=== PATIENT | female | born 1960 | race Caucasian/White ===

== ENCOUNTER 2018-02-11 14:54 | Inpatient (IN) | payer OTHER ==
[2018-02-11 15:15] VITALS: BMI 25.0
[2018-02-11] MEDS ORDERED: Sodium Chloride 0.9% 1,000 ML IV STA (15:23)
--- NOTE | 2018-02-11 15:40 | ED PDOC ---
Arrival/HPI - General Historian: Patient, Partner (Boyfriend) - History of Present Illness Narrative History of Present Illness (Text): 02/11/18 15:29 58 y o female with no remarkable past medical hx presents to the ED c/o b/l lower abd pain, n/v since 4 am today. States she last ate BLT sandwich in the evening yesterday, and that her symptoms awoke her from sleep this am. States she might have food poisoning. Admits to associated subjective fevers/chills, reports several episodes of vomiting and dry heaves (last episode at 12 pm today). Unable to tolerate PO liquids or solid foods due to nausea/vomiting. Admits to associated lighheadedness. Also had several episodes of non-bloody watery diarrhea. Denies hx sick contacts, recent illness, or cold-like symptoms prior; states she was feeling well prior to this episode. Denies headache, chest pain, palpitations, sob, urinary complaints, or other symptoms. PMHx: denies PSurgHx: denies Allergies: PCN (rash) Home meds: none Fam hx: denies Soc hx: denies smoking, EtOH, or illicit drug use PMD: none Time/Duration: 24 hours Symptom Onset: Sudden Symptom Course: Worsening Quality: Unable to Describe Activities at Onset: Rest Context: Home <Donavon Rawls - Last Filed: 02/11/18 19:46> <Vargas Matthews - Last Filed: 02/12/18 23:16> - General Chief Complaint: Abdominal Pain Past Medical History - Provider Review Nursing Documentation Reviewed: Yes - Travel History Have you recently traveled outside [place] w/in the past 3 mons?: No - Past History Past History: No Previous - Infectious Disease Hx of Infectious Diseases: None <Donavon Rawls - Last Filed: 02/11/18 19:46> Family/Social History - Physician Review Nursing Documentation Reviewed: Yes Family/Social History: No Known Family HX Smoking Status: Never Smoked Hx Alcohol Use: No <Donavon Rawls - Last Filed: 02/11/18 19:46> Allergies/Home Meds <Donavon Rawls - Last Filed: 02/11/18 19:46> <Vargas Matthews - Last Filed: 02/12/18 23:16> Allergies/Adverse Reactions: Allergies Penicillins Allergy (Verified 02/11/18 22:21) RASH Review of Systems - Physician Review All systems were reviewed & negative as marked: Yes - Review of Systems Constitutional: Fatigue, Fevers. absent: Weight Change, Night Sweats Eyes: absent: Vision Changes Respiratory: absent: SOB, Cough, Sputum, Wheezing Cardiovascular: absent: Chest Pain, Palpitations, PATEL Gastrointestinal: Abdominal Pain, Stool Changes, Diarrhea, Nausea, Vomiting, Ap petite Changes, Anorexia. absent: Constipation Genitourinary Female: absent: Dysuria, Frequency, Hematuria, Urine Output Changes, Vaginal Bleeding Musculoskeletal: Back Pain, Myalgias. absent: Arthralgias Skin: absent: Rash, Pruritis Neurological: Dizziness. absent: Headache Endocrine: absent: Diaphoresis <Donavon Rawls - Last Filed: 02/11/18 19:46> Physical Exam Vital Signs Reviewed: Yes Vital Signs Temp Pulse Resp BP Pulse Ox 02/11/18 15:14 99.6 F 81 18 141/84 100 Temperature: Afebrile Blood Pressure: Normal Pulse: Regular Respiratory Rate: Normal Appearance: Positive for: Non-Toxic, Ill-Appearing, Uncomfortable Pain Distress: Moderate Mental Status: Positive for: Alert and Oriented X 3 - Systems Exam Head: Present: Atraumatic, Normocephalic Pupils: Present: PERRL Extroacular Muscles: Present: EOMI Conjunctiva: Present: Normal Mouth: Present: Moist Mucous Membranes Neck: Present: Normal Range of Motion. No: JVD, Lymphadenopathy Respiratory/Chest: Present: Clear to Auscultation, Good Air Exchange. No: Respiratory Distress, Accessory Muscle Use, Wheezes, Rales, Rhonchi Cardiovascular: Present: Regular Rate and Rhythm, Normal S1, S2. No: Murmurs, Rub, Gallop Abdomen: Present: Tenderness (Epigastric tenderness and RLQ and LLQ tenderness to palpation, no suprapubic tenderness), Distention, Normal Bowel Sounds, Guarding. No: Rebound, Mass/Organomegaly Back: Present: Normal Inspection, CVA Tenderness (On R side) Upper Extremity: Present: Normal Inspection, Normal ROM, NORMAL PULSES, Neurovascularly Intact, Capillary Refill < 2s. No: Cyanosis, Edema, Temperature Abnormalties Lower Extremity: Present: Normal Inspection, NORMAL PULSES, Normal ROM, Ne urovascularly Intact, Capillary Refill < 2 s. No: Edema, Temperature Abnormalties Neurological: Present: GCS=15, CN II-XII Intact, Speech Normal Skin: Present: Warm, Dry, Normal Color. No: Rashes Psychiatric: Present: Alert, Oriented x 3, Normal Insight, Normal Concentration <Donavon Rawls - Last Filed: 02/11/18 19:46> Vital Signs Temp Pulse Resp BP Pulse Ox 02/11/18 20:06 99.5 F 99 H 18 125/71 100 02/11/18 18:00 100.7 F H 100 H 17 126/79 96 02/11/18 17:48 75 18 138/79 100 02/11/18 15:14 99.6 F 81 18 141/84 100 - Systems Exam Abdomen: Present: Tenderness <Vargas Matthews - Last Filed: 02/12/18 23:16> Medical Decision Making ED Course and Treatment: 02/11/18 15:47 58 y o female no PMhx presents with lower abd pain, n/v since 4 am today. Plan: -Labs -EKG -Zofran, Toradol -IVF -CT abd/pelvis Will continue to monitor. 02/11/18 19:28 Spoke about case with medical economics consultant, who accepts admission under service of Dr. Justin. - RAD Interpretation Radiology Orders: 02/11/18 15:25 ABD & PELVIS W/O PO OR IV CONT [CT] Stat - Medication Orders Current Medication Orders: Sodium Chloride (Sodium Chloride 0.9%) 1,000 mls @ 999 mls/hr IV .Q1H1M STA Stop: 02/11/18 16:23 Discontinued Medications Ketorolac Tromethamine (Toradol) 30 mg IVP STAT STA Stop: 02/11/18 15:24 Ondansetron HCl (Zofran Inj) 4 mg IVP STAT STA Stop: 02/11/18 15:24 <Donavon Rawls - Last Filed: 02/11/18 19:46> - Lab Interpretations Microbiology Results: Microbiology Results 02/11/18 17:30 Blood Gram Stain - Final 02/11/18 17:52 Blood Gram Stain - Final Lab Results: 02/11/18 16:30 02/11/18 16:30 Lab Results 02/11/18 17:30: Urine Color Yellow, Urine Appearance Slight-cloudy, Urine pH 7.0, Ur Specific [place] 1.020, Urine Protein Trace H, Urine Glucose (UA) Negative, Urine Ketones Negative, Urine Blood Trace-lysed H, Urine Nitrate Positive H, Urine Bilirubin Negative, Urine Urobilinogen 0.2, Ur Leukocyte Esterase Trace H, Urine RBC Negative, Urine WBC 5 - 10, Ur Epithelial Cells 1 - 3, Urine Bacteria Large 02/11/18 16:30: Sodium 136, Potassium 4.2, Chloride 100, Carbon Dioxide 28, Anion Gap 13, BUN 20, Creatinine 1.0, Est GFR ( Amer) > 60, Est GFR (Non- Af Amer) 57, Random Glucose 156 H, Calcium 9.6, Phosphorus 3.3, Magnesium 1.5 L, Total Bilirubin 1.6 H, AST 34, ALT 31, Alkaline Phosphatase 92, Total Protein 8.6 H, Albumin 4.4, Globulin 4.2, Albumin/Globulin Ratio 1.1, Lipase 41 02/11/18 16:30: WBC 21.0 H, RBC 4.70, Hgb 14.1, Hct 41.9, MCV 89.1, MCH 30.0, MCHC 33.7, RDW 14.3, Plt Count 232, MPV 9.7, Gran % 92.3 H, Lymph % (Auto) 3.6 L , [place] % (Auto) 4.1, Eos % (Auto) 0.0 L, Baso % (Auto) 0.0, Gran # 19.36 H, Lymph # (Auto) 0.8 L, [place] # (Auto) 0.9 H, Eos # (Auto) 0.0, Baso # (Auto) 0.01, Neutrophils % (Manual) 85 H, Band Neutrophils % 3 H, Lymphocytes % (Manual) 8 L , Monocytes % (Manual) 3, Metamyelocytes % 1, Platelet Evaluation Normal - RAD Interpretation Radiology Orders: 02/11/18 15:25 ABD & PELVIS W/O PO OR IV CONT [CT] Stat - Medication Orders Current Medication Orders: Enoxaparin Sodium (Lovenox) 40 mg SC DAILY [facility]; Protocol Last Admin: 02/12/18 09:34 Dose: 40 mg Subcutaneous Administrations Document 02/12/18 09:34 BIR (Rec: 02/12/18 09:34 [facility] [id number]) Charges for Administration # of Subcutaneous Administrations 1 Famotidine (Pepcid) 20 mg IVP DAILY MANDY Last Admin: 02/12/18 09:34 Dose: 20 mg IVP Administration Document 02/12/18 09:34 BIR (Rec: 02/12/18 09:35 BIR [id number]) Charges for Administration # of IVP Administrations 1 Ciprofloxacin (Cipro 400mg/200ml Dsw) 400 mg in 200 mls @ 133.3 mls/hr IVPB Q12 MANDY; Protocol Stop: 02/12/18 11:31 Last Admin: 02/12/18 09:33 Dose: 133.3 mls/hr eMAR Start Stop Document 02/12/18 09:33 BIR (Rec: 02/12/18 09:34 BIR [id number]) Intravenous Solution Start Date 02/12/18 Start Time 09:33 End Date 02/12/18 End time 11:05 Total Infusion Time 92 Sodium Chloride (Sodium Chloride 0.9%) 1,000 mls @ 100 mls/hr IV .Q10H MANDY Last Admin: 02/11/18 23:25 Dose: 100 mls/hr eMAR Start Stop Document 02/11/18 23:25 MV (Rec: 02/11/18 23:25 MV [id number]) Intravenous Solution Start Date 02/11/18 Start Time 23:25 End Date 02/11/18 Ketorolac Tromethamine (Toradol) 15 mg IVP Q4 PRN PRN Reason: Pain, severe (8-10) Last Admin: 02/12/18 09:39 Dose: 15 mg MAR Pain Assessment Document 02/12/18 09:39 BIR (Rec: 02/12/18 09:41 BIR [id number]) Pain Reassessment Is this a pain reassessment? No Sleep Is patient sleeping during reassessment? No Presence of Pain Presence of Pain Yes IVP Administration Document 02/12/18 09:39 BIR (Rec: 02/12/18 09:41 BIR [id number]) Charges for Administration # of IVP Administrations 1 Ondansetron HCl (Zofran Inj) 4 mg IVP Q4H PRN PRN Reason: Nausea/Vomiting Discontinued Medications Acetaminophen (Tylenol 325mg Tab) 650 mg PO STAT STA Stop: 02/11/18 18:10 Last Admin: 02/11/18 18:14 Dose: 650 mg MAR Pain/Vitals Document 02/11/18 18:14 (Rec: 02/11/18 18:14 [id number] Pain Reassessment Is This A Pain ReAssessment? No Sleep Is patient sleeping during reassessment? No Presence of Pain Presence of Pain No Acetaminophen (Tylenol 325mg Tab) 650 mg PO ONCE ONE Stop: 02/12/18 06:10 Last Admin: 02/12/18 06:41 Dose: 650 mg MAR Pain/Vitals Document 02/12/18 06:41 FC (Rec: 02/12/18 06:41 FC [id number]) Presence of Pain Presence of Pain Yes Location Pain Location [employer] Sodium Chloride (Sodium Chloride 0.9%) 1,000 mls @ 999 mls/hr IV .Q1H1M STA Stop: 02/11/18 16:23 Last Admin: 02/11/18 16:40 Dose: 999 mls/hr eMAR Start Stop Document 02/11/18 16:40 RC (Rec: 02/11/18 16:42 [facility]-1) Intravenous Solution Start Date 02/11/18 Start Time 16:42 Ciprofloxacin (Cipro 400mg/200ml Dsw) 400 mg in 200 mls @ 133.3 mls/hr IVPB STAT STA; Protocol Stop: 02/11/18 18:21 Last Admin: 02/11/18 17:53 Dose: 133.3 mls/hr eMAR Start Stop Document 02/11/18 17:53 (Rec: 02/11/18 17:54 [facility]-1) Intravenous Solution Start Date 02/11/18 Start Time 17:54 Magnesium Sulfate/Dextrose (Magnesium Sulfate 1 Gm/100 Ml D5w) 1 gm in 100 mls @ 100 mls/hr IVPB ONCE ONE Stop: 02/11/18 23:39 Last Admin: 02/11/18 23:25 Dose: 100 mls/hr eMAR Start Stop Document 02/11/18 23:25 MV (Rec: 02/11/18 23:25 MV [id number]) Intravenous Solution Start Date 02/11/18 Start Time 23:25 End Date 02/12/18 End time 00:25 Total Infusion Time 60 Ketorolac Tromethamine (Toradol) 30 mg IVP STAT STA Stop: 02/11/18 15:24 Last Admin: 02/11/18 16:38 Dose: 30 mg MAR Pain Assessment Document 02/11/18 16:38 (Rec: 02/11/18 16:39 [place] [id number]) Pain Reassessment Is this a pain reassessment? No Presence of Pain Presence of Pain Yes Pain Scale Used Protocol: PSCALES Pain Scale Used Numeric Location Pain Location Body Site Abdomen Description Description Cramping IVP Administration Document 02/11/18 16:38 RC (Rec: 02/11/18 16:39 [place] [id number]) Charges for Administration # of IVP Administrations 1 Ondansetron HCl (Zofran Inj) 4 mg IVP STAT STA Stop: 02/11/18 15:24 Last Admin: 02/11/18 16:39 Dose: 4 mg IVP Administration Document 02/11/18 16:39 RC (Rec: 02/11/18 16:39 [place] [id number]) Charges for Administration # of IVP Administrations 1 <Vargas Matthews - Last Filed: 02/12/18 23:16> - PA / [employer] / Resident Statement / has examined the patient and agrees with the treatment plan. (58 yr old F p/w lower abd pain. on Exam CVAT and lower abd pain. CT w/ Pyelo + renal pelvis stone. Pt in NAD, IVF running, abx given. UTI 5-10 whites + CVAT. Given N/V elevated WBC and pyelo pt was admitted.) <Vargas Matthews - Last Filed: 02/12/18 23:16> Disposition/Present on Arrival - Present on Arrival Any Indicators Present on Arrival: No History of DVT/PE: No History of Uncontrolled Diabetes: No Urinary Catheter: No History of Decub. Ulcer: No - Disposition Have Diagnosis and Disposition been Completed?: Yes Disposition Time: 19:28 Patient Plan: Admission <Donavon Rawls - Last Filed: 02/11/18 19:46> <Vargas Matthews - Last Filed: 02/12/18 23:16> - Disposition Diagnosis: Pyelonephritis Disposition: HOSPITALIZED Patient Problems: Current Active Problems Problem Status Onset Pyelonephritis Acute Condition: GUARDED
--- NOTE | 2018-02-11 16:02 | CT ---
Date of service: 02/11/2018 PROCEDURE: CT Abdomen and Pelvis without intravenous contrast HISTORY: lower abd pain, nausea, vomiting COMPARISON: None. TECHNIQUE: Without contrast.. Contrast dose: Radiation dose: Total exam DLP = 612.44 mGy-cm. This CT exam was performed using one or more of the following dose reduction techniques: Automated exposure control, adjustment of the mA and/or kV according to patient size, and/or use of iterative reconstruction technique. FINDINGS: LOWER THORAX: Unremarkable. LIVER: Unremarkable. No gross lesion or ductal dilatation. GALLBLADDER AND BILE DUCTS: Unremarkable. PANCREAS: Unremarkable. No gross lesion or ductal dilatation. SPLEEN: Unremarkable. ADRENALS: Unremarkable. No mass. KIDNEYS AND URETERS: Multiple stones are seen in the right kidney including a large 12 x 22 mm stone in the renal pelvis. Small amount of air can be seen within the renal pelvis which could be due to instrumentation or a gas-forming infection. There is perinephric stranding extending below the lower pole of the right kidney. Findings are suspicious for pyelonephritis VASCULATURE: Unremarkable. No aortic aneurysm. No aortic atherosclerotic calcification or mural plaque present. BOWEL: Unremarkable. No obstruction. No gross mural thickening. APPENDIX: Unremarkable. Normal appendix. PERITONEUM: Unremarkable. No free fluid. No free air. LYMPH NODES: Unremarkable. No enlarged lymph nodes. BLADDER: Unremarkable. REPRODUCTIVE: Unremarkable. BONES: No acute fracture. OTHER FINDINGS: None. IMPRESSION: Multiple stones are seen in the right kidney including a large 12 x 22 mm stone in the renal pelvis. Small amount of air can be seen within the renal pelvis which could be due to instrumentation or a gas-forming infection. There is perinephric stranding extending below the lower pole of the right kidney. Findings are suspicious for pyelonephritis
[2018-02-11 16:51] LABS: ALB/GLOB RATIO 1.1 (1.1-1.8); ALBUMIN 4.4 g/dL (3.0-4.8); ALT/SGPT 31 U/L (7-56); AST/SGOT 34 U/L (14-36); BLOOD UREA NITROGEN 20 mg/dL (7-21); CALCIUM 9.6 mg/dL (8.4-10.5); GFR NON-AFRICAN AMERICAN 57; LIPASE 41 U/L (23-300)
[2018-02-11] MEDS ORDERED: Ciprofloxacin 400mg/200ml D5W 400 MG/200 ML BAG IVPB STA (16:51)
[2018-02-11 17:01] LABS: BASO # 0.01 K/mm3 (0.0-2.0); GRAN # 19.36 (1.4-6.5); GRAN % 92.3 % (50.0-68.0); HEMOGLOBIN 14.1 g/dL (12.0-16.0); LYMPH # 0.8 (1.2-3.4); LYMPH % 3.6 % (22.0-35.0); MEAN CELL VOLUME 89.1 fl (80.0-105.0); MEAN CORPUSCULAR HGB CONC 33.7 g/dl (31.0-37.0); MEAN PLATELET VOLUME 9.7 fl (7.0-11.0); MONO # 0.9 (0.1-0.6); MONO % 4.1 % (1.0-6.0); PLATELET COUNT 232 10^3/uL (120.0-450.0); RED CELL DISTRIBUTION WIDTH 14.3 % (11.5-14.5)
[2018-02-11 17:35] LABS: BAND 3 % (0-2); LYMPHOCYTE 8 % (22.0-35.0); METAMYELOCYTE 1 %; MONOCYTE 3 % (1.0-6.0); NEUTROPHIL 85 % (50.0-70.0)
[2018-02-11 17:36] LABS: PLATELET ESTIMATE NORMAL (NORMAL)
[2018-02-11 18:45] LABS: URINE BILIRUBIN NEGATIVE (NEGATIVE); URINE BLOOD TRACE-LYSED (NEGATIVE); URINE GLUCOSE (UA) NEGATIVE (NEGATIVE); URINE LEUKOCYTE ESTERASE TRACE Leu/uL (NEGATIVE); URINE PROTEIN TRACE mg/dL (<30 mg/dL); URINE UROBILINOGEN 0.2 E.U./dL (<1 E.U./dL)
[2018-02-11 18:46] LABS: URINE APPEARANCE SLIGHT-CLOUDY (CLEAR); URINE COLOR YELLOW (YELLOW)
[2018-02-11 18:51] LABS: URINE BACTERIA LARGE (NEG); URINE RBC NEGATIVE /hpf (0-2)
--- NOTE | 2018-02-11 21:46 | CP.PCM.HP ---
<Irma Yousif - Last Filed: 02/12/18 01:19> History of Present Illness - History of Present Illness History of Present Illness: Irma Yousif, PGY1 Hospital H&P This is a 58 year old female with no PMH presenting to the ED for one day history of abdominal pain. Patient states she woke up at approximately 4am and had sudden B/l lower abdominal pain rated 10/10, radiating to the right side of the back, sharp, constant, denies any alleviating or exacerbating factors and admits to associated symptoms of nausea, vomiting x5 non bloody and non bloody diarrhea x4. Last diarrhea episode was at 3pm. She states she has never had these symptoms before. Last meal was previous evening and had a BLT sandwich. She denies CP, SOB, headaches, fevers, cough, recent sickness, travel, lifestyle change, trauma, urinary complaints, numbness, tingling, swelling, constipation and hematemesis. 12 point ROS noted here, otherwise unremarkable. PMD: denies PMH: denies SH: denies drinking, smoking and drugs FH: denies Sx: denies surgeries All: PCN - gets rash Meds: denies Present on Admission - Present on Admission Any Indicators Present on Admission: No Past Patient History - Infectious Disease Hx of Infectious Diseases: None - Past Social History Smoking Status: Never Smoked - CARDIAC Hx Cardiac Disorders: No - PULMONARY Hx Respiratory Disorders: No - NEUROLOGICAL Hx Neurological Disorder: No - HEENT Hx HEENT Problems: No - RENAL Hx Chronic Kidney Disease: No - ENDOCRINE/METABOLIC Hx Endocrine Disorders: No - HEMATOLOGICAL/ONCOLOGICAL Hx Blood Disorders: No - INTEGUMENTARY Hx Dermatological Problems: No - MUSCULOSKELETAL/RHEUMATOLOGICAL Hx Musculoskeletal Disorders: No - GASTROINTESTINAL Hx Gastrointestinal Disorders: No - GENITOURINARY/GYNECOLOGICAL Hx Genitourinary Disorders: No - PSYCHIATRIC Hx Psychophysiologic Disorder: No Hx Substance Use: No - SURGICAL HISTORY Hx Surgeries: No Meds Allergies/Adverse Reactions: Allergies Allergy/AdvReac Type Severity Reaction Status Date / Time Penicillins Allergy RASH Verified 02/11/18 22:21 Physical Exam - Constitutional Appears: No Acute Distress - Head Exam Head Exam: ATRAUMATIC, NORMAL INSPECTION - Eye Exam Eye Exam: EOMI Pupil Exam: PERRL - ENT Exam ENT Exam: Mucous Membranes Dry - Respiratory Exam Respiratory Exam: Clear to Auscultation Bilateral, NORMAL BREATHING PATTERN. absent: Accessory Muscle Use, Wheezes, Respiratory Distress - Cardiovascular Exam Cardiovascular Exam: REGULAR RHYTHM, +S1, +S2 - GI/Abdominal Exam GI & Abdominal Exam: Normal Bowel Sounds, Soft. absent: Distended, Firm, Guarding, Tenderness - Extremities Exam Extremities exam: Positive for: normal inspection, pedal pulses present. Negative for: calf tenderness - Back Exam Back exam: CVA tenderness (R), NORMAL INSPECTION. absent: CVA tenderness (L) - Neurological Exam Neurological exam: Alert, Oriented x3 - Skin Skin Exam: Normal Color, Warm Results - Vital Signs Recent Vital Signs: Last Vital Signs Temp 99.5 F 02/11/18 20:06 Pulse 99 H 02/11/18 20:06 Resp 18 02/11/18 20:06 BP 125/71 02/11/18 20:06 Pulse Ox 100 02/11/18 20:06 - Labs Result Diagrams: 02/11/18 16:30 02/11/18 16:30 Labs: Laboratory Results - last 24 hr 02/11/18 02/11/18 02/11/18 16:30 16:30 17:30 WBC 21.0 H RBC 4.70 Hgb 14.1 Hct 41.9 MCV 89.1 MCH 30.0 MCHC 33.7 RDW 14.3 Plt Count 232 MPV 9.7 Gran % 92.3 H Lymph % (Auto) 3.6 L [place] % (Auto) 4.1 Eos % (Auto) 0.0 L Baso % (Auto) 0.0 Gran # 19.36 H Lymph # (Auto) 0.8 L [place] # (Auto) 0.9 H Eos # (Auto) 0.0 Baso # (Auto) 0.01 Neutrophils % (Manual) 85 H Band Neutrophils % 3 H Lymphocytes % (Manual) 8 L Monocytes % (Manual) 3 Metamyelocytes % 1 Platelet Evaluation Normal Sodium 136 Potassium 4.2 Chloride 100 Carbon Dioxide 28 Anion Gap 13 BUN 20 Creatinine 1.0 Est GFR ( Amer) > 60 Est GFR (Non-Af Amer) 57 Random Glucose 156 H Calcium 9.6 Phosphorus 3.3 Magnesium 1.5 L Total Bilirubin 1.6 H AST 34 ALT 31 Alkaline Phosphatase 92 Total Protein 8.6 H Albumin 4.4 Globulin 4.2 Albumin/Globulin Ratio 1.1 Lipase 41 Urine Color Yellow Urine Appearance Slight-cloudy Urine pH 7.0 Ur Specific [place] 1.020 Urine Protein Trace H Urine Glucose (UA) Negative Urine Ketones Negative Urine Blood Trace-lysed H Urine Nitrate Positive H Urine Bilirubin Negative Urine Urobilinogen 0.2 Ur Leukocyte Esterase Trace H Urine RBC Negative Urine WBC 5 - 10 Ur Epithelial Cells 1 - 3 Urine Bacteria Large Assessment & Plan - Assessment and Plan (Free Text) Assessment: This is a 58 year old female with no PMH presenting to the ED for one day history of abdominal pain. Plan: Pyelonephritis -CTAP showed multiple stones in the right kidney including large 12/22mm stone in the right pelvis. Small amount of air can be seen concerning for gas forming infection or instrumentation. Perinephric stranding to lower pole of right kidney appreciated. Findings suspicious for pyelonephritis. -U/A - positive for nitrate, trace lysed blood, leukocyte esterase -Urology on consult, Dr Baxter -Ciprofloxacin day 1 -zofran prn -toradol prn -NS 100 -NPO -urine/blood culture pending Hypomagnesia -repleted, f/u AM labs PPX with lovenox and pepcid Patient seen and case discussed with attending, Dr. Villanueva <Lluvia Villanueva - Last Filed: 02/12/18 19:08> Results - Vital Signs Recent Vital Signs: Last Vital Signs Temp 103 F H 02/12/18 18:00 Pulse 110 H 02/12/18 18:00 Resp 20 02/12/18 18:00 BP 123/58 L 02/12/18 18:00 Pulse Ox 98 02/12/18 18:00 - Labs Result Diagrams: 02/12/18 06:00 02/12/18 06:00 Labs: Laboratory Results - last 24 hr 02/12/18 02/12/18 02/12/18 06:00 06:00 08:48 WBC 20.9 H RBC 4.28 Hgb 12.6 Hct 37.8 MCV 88.3 MCH 29.4 MCHC 33.3 RDW 14.4 Plt Count 212 MPV 9.7 Gran % 89.1 H Lymph % (Auto) 6.2 L [place] % (Auto) 4.7 Eos % (Auto) 0.0 L Baso % (Auto) 0.0 Gran # 18.61 H Lymph # (Auto) 1.3 [place] # (Auto) 1.0 H Eos # (Auto) 0.0 Baso # (Auto) 0.01 PT INR APTT Sodium 137 Potassium 3.7 Chloride 104 Carbon Dioxide 26 Anion Gap 11 BUN 17 Creatinine 1.2 Est GFR ( Amer) 56 Est GFR (Non-Af Amer) 46 Random Glucose 113 H Calcium 8.7 Total Bilirubin 1.9 H AST 30 ALT 29 Alkaline Phosphatase 94 Total Protein 7.2 Albumin 3.7 Globulin 3.6 Albumin/Globulin Ratio 1.0 L Procalcitonin 2.86 H 02/12/18 11:40 WBC RBC Hgb Hct MCV MCH MCHC RDW Plt Count MPV Gran % Lymph % (Auto) [place] % (Auto) Eos % (Auto) Baso % (Auto) Gran # Lymph # (Auto) [place] # (Auto) Eos # (Auto) Baso # (Auto) PT 18.4 H INR 1.59 APTT 30.6 Sodium Potassium Chloride Carbon Dioxide Anion Gap BUN Creatinine Est GFR ( Amer) Est GFR (Non-Af Amer) Random Glucose Calcium Total Bilirubin AST ALT Alkaline Phosphatase Total Protein Albumin Globulin Albumin/Globulin Ratio Procalcitonin Attending/Attestation - Attestation I have personally seen and examined this patient.: Yes I have fully participated in the care of the patient.: Yes I have reviewed all pertinent clinical information: Yes
[2018-02-11] MEDS ORDERED: Magnesium Sulfate 1 gm in D5W 1 GM/100 ML BAG IVPB ONE (22:40)
[2018-02-11] MEDS: Sodium Chloride 0.9% 1,000 ML IV SCH (23:25)
[2018-02-12 06:50] LABS: ALBUMIN 3.7 g/dL (3.0-4.8); CALCIUM 8.7 mg/dL (8.4-10.5)
[2018-02-12 07:01] LABS: BASO # 0.01 K/mm3 (0.0-2.0); GRAN # 18.61 (1.4-6.5); GRAN % 89.1 % (50.0-68.0); HEMOGLOBIN 12.6 g/dL (12.0-16.0); LYMPH # 1.3 (1.2-3.4); LYMPH % 6.2 % (22.0-35.0); MEAN CELL VOLUME 88.3 fl (80.0-105.0); MEAN CORPUSCULAR HEMOGLOBIN 29.4 pg (25.0-35.0); MEAN CORPUSCULAR HGB CONC 33.3 g/dl (31.0-37.0); MEAN PLATELET VOLUME 9.7 fl (7.0-11.0); MONO % 4.7 % (1.0-6.0); RBC 4.28 10^6/uL (3.5-6.1); RED CELL DISTRIBUTION WIDTH 14.4 % (11.5-14.5); WHITE BLOOD COUNT 20.9 10^3/uL (4.5-11.0)
--- NOTE | 2018-02-12 08:57 | CP.PCM.CON ---
<Aly Trent - Last Filed: 02/12/18 15:12> History of Present Illness - History of Present Illness History of Present Illness: Infectious disease consult note for Dr. Ferreira/Dr. Maryann Trent PGY3 HPI: Patient is a 58yo female with no significant past medical history that presented with c/o abdominal pain. Patient stated that she was awoken in th emiddle of the night with sudden bilateral lower quadrant abdominal pain that radiated to the back and was constant, 10/10 in severity. She stated the pain was associated with nausea, nonbilious nonbloody vomiting and several loose b owel movements. She denied any alleviating/exacerbating factors and has never had anything similar in the past. Prior to this was in reportedly good health. She denied chest pain, palpitations, SOB, fever, chills, cough, focal weakness, numbness, tingling, recent travel, sick contact, dysuria. 12point ROS as per above otherwise negative PMH: denies PSH: denies Allergies: PCN (rash) Family Hx: Reviewed, noncontributory Social Hx: denities tobacco, alcohol and illicit drug use Past Patient History - Infectious Disease Hx of Infectious Diseases: None - Past Social History Smoking Status: Never Smoked - CARDIAC Hx Cardiac Disorders: No - PULMONARY Hx Respiratory Disorders: No - NEUROLOGICAL Hx Neurological Disorder: No - HEENT Hx HEENT Problems: No - RENAL Hx Chronic Kidney Disease: No - ENDOCRINE/METABOLIC Hx Endocrine Disorders: No - HEMATOLOGICAL/ONCOLOGICAL Hx Blood Disorders: No - INTEGUMENTARY Hx Dermatological Problems: No - MUSCULOSKELETAL/RHEUMATOLOGICAL Hx Musculoskeletal Disorders: No - GASTROINTESTINAL Hx Gastrointestinal Disorders: No - GENITOURINARY/GYNECOLOGICAL Hx Genitourinary Disorders: No - PSYCHIATRIC Hx Psychophysiologic Disorder: No Hx Substance Use: No - SURGICAL HISTORY Hx Surgeries: No Meds Allergies/Adverse Reactions: Allergies Allergy/AdvReac Type Severity Reaction Status Date / Time Penicillins Allergy RASH Verified 02/11/18 22:21 - Medications Medications: Current Medications Enoxaparin Sodium (Lovenox) 40 mg SC DAILY [facility]; Protocol Famotidine (Pepcid) 20 mg IVP DAILY [facility] Ciprofloxacin (Cipro 400mg/200ml Dsw) 400 mg in 200 mls @ 133.3 mls/hr IVPB Q12 [facility]; Protocol Stop: 02/12/18 11:31 Sodium Chloride (Sodium Chloride 0.9%) 1,000 mls @ 100 mls/hr IV .Q10H [facility] Last Admin: 02/11/18 23:25 Dose: 100 mls/hr Ketorolac Tromethamine (Toradol) 15 mg IVP Q4 PRN PRN Reason: Pain, severe (8-10) Last Admin: 02/12/18 05:51 Dose: 15 mg Ondansetron HCl (Zofran Inj) 4 mg IVP Q4H PRN PRN Reason: Nausea/Vomiting Physical Exam - Constitutional Appears: No Acute Distress - Head Exam Head Exam: ATRAUMATIC, NORMAL INSPECTION, NORMOCEPHALIC - Eye Exam Eye Exam: EOMI, PERRL - ENT Exam ENT Exam: Mucous Membranes Moist - Respiratory Exam Respiratory Exam: absent: Rales, Rhonchi, Wheezes - Cardiovascular Exam Cardiovascular Exam: RRR, +S1, +S2. absent: Gallop, Rubs - GI/Abdominal Exam GI & Abdominal Exam: Soft, Tenderness. absent: Distended, Firm, Rigid - Neurological Exam Neurological exam: Alert, Oriented x3 - Psychiatric Exam Psychiatric exam: Normal Affect, Normal Mood - Skin Skin Exam: Dry, Intact, Normal Color, Warm Results - Vital Signs Recent Vital Signs: Last Vital Signs Temp 100.0 F H 02/12/18 06:00 Pulse 103 H 02/12/18 06:00 Resp 20 02/12/18 06:00 BP 115/77 02/12/18 06:00 Pulse Ox 94 L 02/12/18 06:00 - Labs Result Diagrams: 02/12/18 06:00 02/12/18 06:00 Labs: Laboratory Results - last 24 hr 02/11/18 02/11/18 02/11/18 16:30 16:30 17:30 WBC 21.0 H RBC 4.70 Hgb 14.1 Hct 41.9 MCV 89.1 MCH 30.0 MCHC 33.7 RDW 14.3 Plt Count 232 MPV 9.7 Gran % 92.3 H Lymph % (Auto) 3.6 L [place] % (Auto) 4.1 Eos % (Auto) 0.0 L Baso % (Auto) 0.0 Gran # 19.36 H Lymph # (Auto) 0.8 L [place] # (Auto) 0.9 H Eos # (Auto) 0.0 Baso # (Auto) 0.01 Neutrophils % (Manual) 85 H Band Neutrophils % 3 H Lymphocytes % (Manual) 8 L Monocytes % (Manual) 3 Metamyelocytes % 1 Platelet Evaluation Normal Sodium 136 Potassium 4.2 Chloride 100 Carbon Dioxide 28 Anion Gap 13 BUN 20 Creatinine 1.0 Est GFR ( Amer) > 60 Est GFR (Non-Af Amer) 57 Random Glucose 156 H Calcium 9.6 Phosphorus 3.3 Magnesium 1.5 L Total Bilirubin 1.6 H AST 34 ALT 31 Alkaline Phosphatase 92 Total Protein 8.6 H Albumin 4.4 Globulin 4.2 Albumin/Globulin Ratio 1.1 Lipase 41 Urine Color Yellow Urine Appearance Slight-cloudy Urine pH 7.0 Ur Specific [place] 1.020 Urine Protein Trace H Urine Glucose (UA) Negative Urine Ketones Negative Urine Blood Trace-lysed H Urine Nitrate Positive H Urine Bilirubin Negative Urine Urobilinogen 0.2 Ur Leukocyte Esterase Trace H Urine RBC Negative Urine WBC 5 - 10 Ur Epithelial Cells 1 - 3 Urine Bacteria Large 02/12/18 02/12/18 06:00 06:00 WBC 20.9 H RBC 4.28 Hgb 12.6 Hct 37.8 MCV 88.3 MCH 29.4 MCHC 33.3 RDW 14.4 Plt Count 212 MPV 9.7 Gran % 89.1 H Lymph % (Auto) 6.2 L [place] % (Auto) 4.7 Eos % (Auto) 0.0 L Baso % (Auto) 0.0 Gran # 18.61 H Lymph # (Auto) 1.3 Cedar # (Auto) 1.0 H Eos # (Auto) 0.0 Baso # (Auto) 0.01 Neutrophils % (Manual) Band Neutrophils % Lymphocytes % (Manual) Monocytes % (Manual) Metamyelocytes % Platelet Evaluation Sodium 137 Potassium 3.7 Chloride 104 Carbon Dioxide 26 Anion Gap 11 BUN 17 Creatinine 1.2 Est GFR ( Amer) 56 Est GFR (Non-Af Amer) 46 Random Glucose 113 H Calcium 8.7 Phosphorus Magnesium Total Bilirubin 1.9 H AST 30 ALT 29 Alkaline Phosphatase 94 Total Protein 7.2 Albumin 3.7 Globulin 3.6 Albumin/Globulin Ratio 1.0 L Lipase Urine Color Urine Appearance Urine pH Ur Specific [place] Urine Protein Urine Glucose (UA) Urine Ketones Urine Blood Urine Nitrate Urine Bilirubin Urine Urobilinogen Ur Leukocyte Esterase Urine RBC Urine WBC Ur Epithelial Cells Urine Bacteria Assessment & Plan - Assessment and Plan (Free Text) Plan: 58yo female with no significant history presents with sudden onset abdominal pain secondary to right-sided pyelonephritis right-sided pyelonephritis obstructive uropathy nephrolithiasis hypomagnesemia abdominal pain/nausea/vomiting -urinalysis positive for uti -patient started on azactam pending culture -cultures are pending including blood/urine -procalcitonin is pending -f/u urology recommendations -CT abd/pelvis was reviewed; revealed multiple stones in the r. kidney, perinephritic stranding; findings suspicious for pyelonephritis Patient seen and case discussed/reviewed with attending, Dr. Ferreira <Tulio Ferreira - Last Filed: 02/12/18 17:46> Meds - Medications Medications: Current Medications Acetaminophen (Tylenol 325mg Tab) 650 mg PO Q6H PRN PRN Reason: Fever >100.4 F Last Admin: 02/12/18 16:23 Dose: 650 mg Enoxaparin Sodium (Lovenox) 40 mg SC DAILY [facility]; Protocol Last Admin: 02/12/18 09:34 Dose: 40 mg Famotidine (Pepcid) 20 mg IVP DAILY [facility] Last Admin: 02/12/18 09:34 Dose: 20 mg Sodium Chloride (Sodium Chloride 0.9%) 1,000 mls @ 100 mls/hr IV .Q10H [facility] Last Admin: 02/11/18 23:25 Dose: 100 mls/hr Aztreonam (Azactam 1 Gm) 100 mls @ 100 mls/hr IVPB Q8 [facility]; Protocol Stop: 02/12/18 22:59 Last Admin: 02/12/18 13:46 Dose: 100 mls/hr Ketorolac Tromethamine (Toradol) 15 mg IVP Q4 PRN PRN Reason: Pain, severe (8-10) Last Admin: 02/12/18 09:39 Dose: 15 mg Ondansetron HCl (Zofran Inj) 4 mg IVP Q4H PRN PRN Reason: Nausea/Vomiting Results - Vital Signs Recent Vital Signs: Last Vital Signs Temp 100.0 F H 02/12/18 06:00 Pulse 103 H 02/12/18 06:00 Resp 20 02/12/18 06:00 BP 115/77 02/12/18 06:00 Pulse Ox 94 L 02/12/18 06:00 - Labs Result Diagrams: 02/12/18 06:00 02/12/18 06:00 Labs: Laboratory Results - last 24 hr 02/11/18 02/12/18 02/12/18 17:30 06:00 06:00 WBC 20.9 H RBC 4.28 Hgb 12.6 Hct 37.8 MCV 88.3 MCH 29.4 MCHC 33.3 RDW 14.4 Plt Count 212 MPV 9.7 Gran % 89.1 H Lymph % (Auto) 6.2 L [place] % (Auto) 4.7 Eos % (Auto) 0.0 L Baso % (Auto) 0.0 Gran # 18.61 H Lymph # (Auto) 1.3 Cedar # (Auto) 1.0 H Eos # (Auto) 0.0 Baso # (Auto) 0.01 PT INR APTT Sodium 137 Potassium 3.7 Chloride 104 Carbon Dioxide 26 Anion Gap 11 BUN 17 Creatinine 1.2 Est GFR ( Amer) 56 Est GFR (Non-Af Amer) 46 Random Glucose 113 H Calcium 8.7 Total Bilirubin 1.9 H AST 30 ALT 29 Alkaline Phosphatase 94 Total Protein 7.2 Albumin 3.7 Globulin 3.6 Albumin/Globulin Ratio 1.0 L Procalcitonin Urine Color Yellow Urine Appearance Slight-cloudy Urine pH 7.0 Ur Specific [place] 1.020 Urine Protein Trace H Urine Glucose (UA) Negative Urine Ketones Negative Urine Blood Trace-lysed H Urine Nitrate Positive H Urine Bilirubin Negative Urine Urobilinogen 0.2 Ur Leukocyte Esterase Trace H Urine RBC Negative Urine WBC 5 - 10 Ur Epithelial Cells 1 - 3 Urine Bacteria Large 02/12/18 02/12/18 08:48 11:40 WBC RBC Hgb Hct MCV MCH MCHC RDW Plt Count MPV Gran % Lymph % (Auto) Cedar % (Auto) Eos % (Auto) Baso % (Auto) Gran # Lymph # (Auto) Cedar # (Auto) Eos # (Auto) Baso # (Auto) PT 18.4 H INR 1.59 APTT 30.6 Sodium Potassium Chloride Carbon Dioxide Anion Gap BUN Creatinine Est GFR ( Amer) Est GFR (Non-Af Amer) Random Glucose Calcium Total Bilirubin AST ALT Alkaline Phosphatase Total Protein Albumin Globulin Albumin/Globulin Ratio Procalcitonin 2.86 H Urine Color Urine Appearance Urine pH Ur Specific [place] Urine Protein Urine Glucose (UA) Urine Ketones Urine Blood Urine Nitrate Urine Bilirubin Urine Urobilinogen Ur Leukocyte Esterase Urine RBC Urine WBC Ur Epithelial Cells Urine Bacteria Assessment & Plan - Assessment and Plan (Free Text) Plan: Infectious diseases Attending Physician Attestation Patient seen and examined, discussed with bilingual medical receptionist. I have reviewed the patient's history of present illness, past medical, social, personal and family histories, pertinent physical exam findings, course so far in this hospital admission, pertinent laboratory and imaging results. I agree with the above findings, assessment and plan. In addition, started Aztreonam for this patient with sepsis from complicated right sided pyelonpehritis with nephrolithiasis, with gram negative bacilli. Follow up identification and sensitivities of the bacteria in the urine. Follow up plans of Urology.
[2018-02-12] MEDS: Enoxaparin 40 mg Syringe SC SCH (09:34)
[2018-02-12] MEDS ORDERED: Ciprofloxacin 400mg/200ml D5W 400 MG/200 ML BAG IVPB SCH (10:00)
[2018-02-12 12:12] LABS: INR 1.59; PARTIAL THROMBOPLASTIN TIME 30.6 Seconds (25.1-36.5); PROTHROMBIN TIME 18.4 SECONDS (9.4-12.5)
--- NOTE | 2018-02-12 13:04 | PCM.URO ---
Urology Progress Note - Subjective Abdominal Pain: Yes (gu plans : antibiotics /and out pt follow up if clear) Nausea: Yes - Objective Lab Results Last 24 Hours: Laboratory Results - last 24 hr 02/11/18 02/11/18 02/11/18 16:30 16:30 17:30 WBC 21.0 H RBC 4.70 Hgb 14.1 Hct 41.9 MCV 89.1 MCH 30.0 MCHC 33.7 RDW 14.3 Plt Count 232 MPV 9.7 Gran % 92.3 H Lymph % (Auto) 3.6 L [place] % (Auto) 4.1 Eos % (Auto) 0.0 L Baso % (Auto) 0.0 Gran # 19.36 H Lymph # (Auto) 0.8 L [place] # (Auto) 0.9 H Eos # (Auto) 0.0 Baso # (Auto) 0.01 Neutrophils % (Manual) 85 H Band Neutrophils % 3 H Lymphocytes % (Manual) 8 L Monocytes % (Manual) 3 Metamyelocytes % 1 Platelet Evaluation Normal PT INR APTT Sodium 136 Potassium 4.2 Chloride 100 Carbon Dioxide 28 Anion Gap 13 BUN 20 Creatinine 1.0 Est GFR ( Amer) > 60 Est GFR (Non-Af Amer) 57 Random Glucose 156 H Calcium 9.6 Phosphorus 3.3 Magnesium 1.5 L Total Bilirubin 1.6 H AST 34 ALT 31 Alkaline Phosphatase 92 Total Protein 8.6 H Albumin 4.4 Globulin 4.2 Albumin/Globulin Ratio 1.1 Lipase 41 Urine Color Yellow Urine Appearance Slight-cloudy Urine pH 7.0 Ur Specific [place] 1.020 Urine Protein Trace H Urine Glucose (UA) Negative Urine Ketones Negative Urine Blood Trace-lysed H Urine Nitrate Positive H Urine Bilirubin Negative Urine Urobilinogen 0.2 Ur Leukocyte Esterase Trace H Urine RBC Negative Urine WBC 5 - 10 Ur Epithelial Cells 1 - 3 Urine Bacteria Large 02/12/18 02/12/18 02/12/18 06:00 06:00 11:40 WBC 20.9 H RBC 4.28 Hgb 12.6 Hct 37.8 MCV 88.3 MCH 29.4 MCHC 33.3 RDW 14.4 Plt Count 212 MPV 9.7 Gran % 89.1 H Lymph % (Auto) 6.2 L [place] % (Auto) 4.7 Eos % (Auto) 0.0 L Baso % (Auto) 0.0 Gran # 18.61 H Lymph # (Auto) 1.3 [place]hing # (Auto) 1.0 H Eos # (Auto) 0.0 Baso # (Auto) 0.01 Neutrophils % (Manual) Band Neutrophils % Lymphocytes % (Manual) Monocytes % (Manual) Metamyelocytes % Platelet Evaluation PT 18.4 H INR 1.59 APTT 30.6 Sodium 137 Potassium 3.7 Chloride 104 Carbon Dioxide 26 Anion Gap 11 BUN 17 Creatinine 1.2 Est GFR ( Amer) 56 Est GFR (Non-Af Amer) 46 Random Glucose 113 H Calcium 8.7 Phosphorus Magnesium Total Bilirubin 1.9 H AST 30 ALT 29 Alkaline Phosphatase 94 Total Protein 7.2 Albumin 3.7 Globulin 3.6 Albumin/Globulin Ratio 1.0 L Lipase Urine Color Urine Appearance Urine pH Ur Specific [place] Urine Protein Urine Glucose (UA) Urine Ketones Urine Blood Urine Nitrate Urine Bilirubin Urine Urobilinogen Ur Leukocyte Esterase Urine RBC Urine WBC Ur Epithelial Cells Urine Bacteria Intake & Output: Intake & Output 02/11/18 02/12/18 02/12/18 18:59 06:59 18:59 Weight 150 lb 150 lb Other: Voiding Method Toilet Vital Signs: Vital Signs - 24 hr 02/11/18 02/11/18 02/11/18 15:14 17:48 18:00 Temperature 99.6 F 100.7 F H Pulse Rate 81 75 100 H Respiratory 18 18 17 Rate Blood Pressure 141/84 138/79 126/79 O2 Sat by Pulse 100 100 96 Oximetry 02/11/18 02/11/18 02/11/18 20:06 22:30 22:36 Temperature 99.5 F Pulse Rate 99 H 85 Respiratory 18 18 20 Rate Blood Pressure 125/71 126/89 O2 Sat by Pulse 100 100 Oximetry 02/12/18 06:00 Temperature 100.0 F H Pulse Rate 103 H Respiratory 20 Rate Blood Pressure 115/77 O2 Sat by Pulse 94 L Oximetry
[2018-02-12] MEDS: Aztreonam 1 Gm in NS 100mL 100 ML IVPB SCH ×2 (13:46→22:03)
--- NOTE | 2018-02-12 16:29 | CARD ---
APPROVED REPORT Date of service: 02/11/2018 EKG Measurement Heart [id number] <Conclusion> Sinus rhythm with premature supraventricular complexes Otherwise normal ECG
[2018-02-12] MEDS: Sodium Chloride 0.9% 1,000 ML IV SCH (22:04)
[2018-02-13] MEDS: Aztreonam 1 Gm in NS 100mL 100 ML IVPB SCH ×3 (05:53→22:10)
[2018-02-13 08:16] LABS: BASO # 0.02 K/mm3 (0.0-2.0); BASO % 0.1 % (0.0-3.0); GRAN # 13.47 (1.4-6.5); GRAN % 87.1 % (50.0-68.0); HEMOGLOBIN 10.9 g/dL (12.0-16.0); LYMPH # 1.2 (1.2-3.4); LYMPH % 7.8 % (22.0-35.0); MEAN CELL VOLUME 88.5 fl (80.0-105.0); MEAN CORPUSCULAR HEMOGLOBIN 28.5 pg (25.0-35.0); MEAN CORPUSCULAR HGB CONC 32.2 g/dl (31.0-37.0); MEAN PLATELET VOLUME 9.5 fl (7.0-11.0); MONO # 0.8 (0.1-0.6); RBC 3.83 10^6/uL (3.5-6.1); RED CELL DISTRIBUTION WIDTH 14.5 % (11.5-14.5); WHITE BLOOD COUNT 15.5 10^3/uL (4.5-11.0)
[2018-02-13 08:43] LABS: ALB/GLOB RATIO 0.9 (1.1-1.8); ALBUMIN 3.2 g/dL (3.0-4.8); CALCIUM 8.4 mg/dL (8.4-10.5)
[2018-02-13] MEDS: Enoxaparin 40 mg Syringe SC SCH (09:16)
[2018-02-13] MEDS ORDERED: Potassium Chloride 40 mEq/30 ml LIQ UD PO ONE (10:49)
--- NOTE | 2018-02-13 13:21 | CP.PCM.PN ---
<Wilfred Holloway - Last Filed: 02/13/18 13:17> Subjective - Date & Time of Evaluation Date of Evaluation: 02/13/18 Time of Evaluation: 13:17 - Subjective Subjective: Wilfred Holloway, PGY-1, Internal Medicine Progress Note for Dr. Mercer Patient seen and evaluated at bedside. Patient had no overnight events. Patient reports improved abdominal and flank pain. Patient denies nausea and vomiting. Patient has no dysuria or hematuria. 12-point ROS was negative except for what was mentioned above. Objective - Vital Signs/Intake and Output Vital Signs (last 24 hours): Temp Pulse Resp BP Pulse Ox 98.5 F 92 H 20 121/73 95 02/13/18 06:41 02/13/18 06:00 02/13/18 06:00 02/13/18 06:00 02/13/18 06:00 Intake and Output: 02/13/18 02/13/18 06:59 18:59 Intake Total 1400 Balance 1400 - Medications Medications: Current Medications Acetaminophen (Tylenol 325mg Tab) 650 mg PO Q6H PRN PRN Reason: Fever >100.4 F Last Admin: 02/13/18 03:57 Dose: 650 mg Enoxaparin Sodium (Lovenox) 40 mg SC DAILY [facility]; Protocol Last Admin: 02/13/18 09:16 Dose: 40 mg Famotidine (Pepcid) 20 mg IVP DAILY [facility] Last Admin: 02/13/18 09:16 Dose: 20 mg Sodium Chloride (Sodium Chloride 0.9%) 1,000 mls @ 100 mls/hr IV .Q10H [facility] Last Admin: 02/12/18 22:04 Dose: 100 mls/hr Aztreonam (Azactam 1 Gm) 100 mls @ 100 mls/hr IVPB Q8 [facility]; Protocol Stop: 02/19/18 14:01 Last Admin: 02/13/18 05:53 Dose: 100 mls/hr Ketorolac Tromethamine (Toradol) 15 mg IVP Q4 PRN PRN Reason: Pain, severe (8-10) Last Admin: 02/12/18 09:39 Dose: 15 mg Ondansetron HCl (Zofran Inj) 4 mg IVP Q4H PRN PRN Reason: Nausea/Vomiting - Labs Labs: 02/13/18 08:01 02/13/18 08:01 PT 18.4 SECONDS (9.4-12.5) H 02/12/18 11:40 INR 1.59 02/12/18 11:40 APTT 30.6 Seconds (25.1-36.5) 02/12/18 11:40 - Constitutional Appears: Well, Non-toxic, No Acute Distress - Head Exam Head Exam: ATRAUMATIC, NORMAL INSPECTION, NORMOCEPHALIC - Eye Exam Eye Exam: EOMI Pupil Exam: PERRL - Respiratory Exam Respiratory Exam: Clear to Ausculation Bilateral, NORMAL BREATHING PATTERN - Cardiovascular Exam Cardiovascular Exam: REGULAR RHYTHM - GI/Abdominal Exam GI & Abdominal Exam: Soft, Tenderness (RLQ mild), Normal Bowel Sounds - Extremities Exam Extremities Exam: Full ROM - Back Exam Back Exam: CVA tenderness (R) (mild) - Neurological Exam Neurological Exam: Alert, Awake, CN II-XII Intact, Oriented x3 Assessment and Plan - Assessment and Plan (Free Text) Assessment: 58 year old female with no significant past medical history presents with abdominal pain and flank pain. Ct abdomen and pelvis showed mutliple stones in right kidney including large stone that is [id number]. Stone is in right pelvis. Perinephris stranding to lower pole of right kidney was appreciated. Findings are suspicious for pyelonephritis. Plan: Sepsis 2/2 to pyelonephritis -Patient had fever of 102.5 this morning, HR of 92, RR of 20, and WBC of 15.5 with suspected source of infection of pyelonephritis supporting diagnosis of sepsis. Continue to monitor vitals for improvement. -BP stable at 121/73 -Patient has multiple renal stones and CT and clinical findings support pyelonephritis diagnosis. Urine culture positive for E. Coli and blood culture positive for gram negative rods. -Procalcitonin: 2.86. Continue to trend. -Continue with aztreonam due to penicillin allergy so rocephin is not recommended, as per ID, Dr. Ferreira. -Continue with toradol for pain -Continue with zofran PRN for nausea -Continue with acetaminophen PRN for fever. -Dr. Baxter, Urology, consulted for recommendations. Dr. Baxter recommends outpatient follow up and antibiotics Normocytic anemia -Hgb: 10.9 -Continue to monitor Hypokalemia -K:3.4 -Replete as necessary Abnormal LFTs -Increased bilirubin at 1.6 today and increased ALP at 207 from 94. -Abdominal ultrasound ordered to evaluate for biliary tree obstruction. DVT prophylaxis: lovenox 40 mg daily GI prophylaxis: pepcid 20 mg daily Patient plan discussed with Dr. Mercer. <Parminder Mercer - Last Filed: 02/14/18 06:41> Objective - Vital Signs/Intake and Output Vital Signs (last 24 hours): Temp Pulse Resp BP Pulse Ox 98.5 F 92 H 20 121/73 95 02/13/18 06:41 02/13/18 06:00 02/13/18 06:00 02/13/18 06:00 02/13/18 06:00 Intake and Output: 02/13/18 02/14/18 18:59 06:59 Intake Total 1780 Balance 1780 - Medications Medications: Current Medications Acetaminophen (Tylenol 325mg Tab) 650 mg PO Q6H PRN PRN Reason: Fever >100.4 F Last Admin: 02/13/18 18:08 Dose: 650 mg Enoxaparin Sodium (Lovenox) 40 mg SC DAILY [facility]; Protocol Last Admin: 02/13/18 09:16 Dose: 40 mg Famotidine (Pepcid) 20 mg IVP DAILY [facility] Last Admin: 02/13/18 09:16 Dose: 20 mg Sodium Chloride (Sodium Chloride 0.9%) 1,000 mls @ 100 mls/hr IV .Q10H [facility] Last Admin: 02/13/18 14:08 Dose: 100 mls/hr Aztreonam (Azactam 1 Gm) 100 mls @ 100 mls/hr IVPB Q8 [facility]; Protocol Stop: 02/19/18 14:01 Last Admin: 02/13/18 22:10 Dose: 100 mls/hr Ketorolac Tromethamine (Toradol) 15 mg IVP Q4 PRN PRN Reason: Pain, severe (8-10) Last Admin: 02/13/18 22:10 Dose: 15 mg Ondansetron HCl (Zofran Inj) 4 mg IVP Q4H PRN PRN Reason: Nausea/Vomiting - Labs Labs: 02/13/18 08:01 02/13/18 08:01 PT 18.4 SECONDS (9.4-12.5) H 12/07/18 11:40 INR 1.59 02/12/18 11:40 APTT 30.6 Seconds (25.1-36.5) 02/12/18 11:40 Attending/Attestation - Attestation I have personally seen and examined this patient.: Yes I have fully participated in the care of the patient.: Yes I have reviewed all pertinent clinical information, including history, physical exam and plan: Yes Notes (Text): 02/13/18 58 year old female with no significant past medical history who presented with flank pain and fevers. She was found to have multiple stones in the right kidney with pyelonephritis on CT scan and E Coli UTI with gram negative bacteremia. Continue with iv antibiotics as per ID. Leukocytosis is improving and fever trend is coming down. Urology evaluation was appreciated as well. Will replete and repeat potassium. Bilirubin was slightly elevated however CT not suggestive of gallbladder/liver pathology. Will continue to monitor for now. Parminder Mercer MD Hospitalist.
[2018-02-13] MEDS: Sodium Chloride 0.9% 1,000 ML IV SCH (14:08)
--- NOTE | 2018-02-14 01:51 | PN ---
DATE: 02/13/2018 SUBJECTIVE: The patient is seen earlier today in 373, bed 2. No fevers. No chills. The patient is in bed in no acute distress, nontoxic. PHYSICAL EXAMINATION: VITAL SIGNS: Temperature of 98, T-max earlier was 102.5, blood pressure is 121/70. HEENT: Unremarkable. NECK: Supple. LUNGS: Decreased breath sounds. HEART: Normal S1, S2. ABDOMEN: Soft. LABORATORY EXAMINATION: Laboratory examination reveals the urine culture has sensitive E. coli and resistance to ampicillin. The blood cultures shows gram-negative neyda. Further identification and sensitivity is pending. The patient is on aztreonam. ALLERGIES: SHE IS ALLERGIC TO PENICILLIN. note is reviewed. ASSESSMENT AND PLAN: This is a 58-year-old female with past medical history significant for abdominal pain, now presented. There is no significant past medical history, admitted with abdominal pain, found to have sepsis with gram-negative neyda bacteremia, secondary to gram-negative neyda Escherichia coli in the urine with right-sided pyelonephritis, obstructive neuropathy and nephrolithiasis, awaiting for Urology for possible procedure. Currently, on aztreonam because of PENICILLIN ALLERGY. We will check on the identification history of the gram-negative neyda. Jason Wolf MD
[2018-02-14] MEDS: Aztreonam 1 Gm in NS 100mL 100 ML IVPB SCH ×3 (06:53→21:48)
[2018-02-14 07:49] LABS: BASO # 0.02 K/mm3 (0.0-2.0); BASO % 0.2 % (0.0-3.0); EOS # 0.1 (0.0-0.7); EOS % 0.7 % (1.5-5.0); GRAN # 9.4 (1.4-6.5); GRAN % 81.7 % (50.0-68.0); HEMOGLOBIN 10.7 g/dL (12.0-16.0); LYMPH # 1.4 (1.2-3.4); LYMPH % 12.1 % (22.0-35.0); MEAN CELL VOLUME 88.5 fl (80.0-105.0); MEAN CORPUSCULAR HEMOGLOBIN 29.3 pg (25.0-35.0); MEAN CORPUSCULAR HGB CONC 33.1 g/dl (31.0-37.0); MEAN PLATELET VOLUME 9.7 fl (7.0-11.0); MONO # 0.6 (0.1-0.6); MONO % 5.3 % (1.0-6.0); RBC 3.65 10^6/uL (3.5-6.1); RED CELL DISTRIBUTION WIDTH 14.6 % (11.5-14.5); WHITE BLOOD COUNT 11.5 10^3/uL (4.5-11.0)
[2018-02-14 08:33] LABS: ALBUMIN 3.1 g/dL (3.0-4.8); BLOOD UREA NITROGEN 15 mg/dL (7-21); CALCIUM 8.4 mg/dL (8.4-10.5); GFR NON-AFRICAN AMERICAN 57
[2018-02-14 08:34] LABS: ALB/GLOB RATIO 0.8 (1.1-1.8); ALT/SGPT 28 U/L (7-56); AST/SGOT 27 U/L (14-36)
[2018-02-14] MEDS: Enoxaparin 40 mg Syringe SC SCH (09:17)
[2018-02-14] MEDS: Sodium Chloride 0.9% 1,000 ML IV SCH (09:19)
[2018-02-14] MEDS ORDERED: Potassium Chloride 40 mEq/30 ml LIQ UD PO ONE (11:36)
--- NOTE | 2018-02-14 14:44 | PN ---
DATE: 02/14/2018 SUBJECTIVE: The patient is in bed, in no acute distress, nontoxic. She says her pain is still present, however, is improving. Fever has definitely improved. PHYSICAL EXAMINATION VITAL SIGNS: Temperature is 98, blood pressure is 130/70, respiratory rate is 16. HEENT: Unremarkable. NECK: Supple. LUNGS: Decreased breath sounds. HEART: Normal S1, S2. ABDOMEN: Soft, nontender. LABORATORY DATA: Reveals the blood cultures are reported to be long-sensitive E. coli, it is resistant to ampicillin and urine cultures, the same organism E. coli, resistant to ampicillin, otherwise long-sensitive. Currently, the patient is on aztreonam because of PENICILLIN ALLERGY. ASSESSMENT AND PLAN: A 58-year-old female with no significant past medical history who is admitted with sepsis with gram-negative rods, bacteremia, and gram-negative rods in the urine, but right-sided pyelonephritis, obstructive uropathy, and nephrolithiasis, seen by Urology, currently on aztreonam, improving, will need 10 to 14 days of antibiotics, and Urology intervention. Jason Wolf MD
--- NOTE | 2018-02-14 14:45 | CP.PCM.PN ---
<Wilfred Holloway - Last Filed: 02/14/18 14:42> Subjective - Date & Time of Evaluation Date of Evaluation: 02/14/18 Time of Evaluation: 14:42 - Subjective Subjective: Wilfred Holloway, PGY-1, Internal Medicine Progress Note for Dr. Mercer Patient seen and evaluated at bedside. Patient reports no acute overnight events. Patient has improved abdominal and flank pain. Patient denies dysuria, hematuria, nausea, fever. 12-point ROS was negative except for what was mentioned above. Objective - Vital Signs/Intake and Output Vital Signs (last 24 hours): Temp Pulse Resp BP Pulse Ox 98.9 F 74 20 115/69 95 02/14/18 06:00 02/14/18 06:00 02/14/18 06:00 02/14/18 06:00 02/14/18 06:00 Intake and Output: 02/14/18 02/14/18 06:59 18:59 Intake Total 1620 Balance 1620 - Medications Medications: Current Medications Acetaminophen (Tylenol 325mg Tab) 650 mg PO Q6H PRN PRN Reason: Fever >100.4 F Last Admin: 02/13/18 18:08 Dose: 650 mg Enoxaparin Sodium (Lovenox) 40 mg SC DAILY [facility]; Protocol Last Admin: 02/14/18 09:17 Dose: 40 mg Famotidine (Pepcid) 20 mg IVP DAILY [facility] Last Admin: 02/14/18 09:17 Dose: 20 mg Sodium Chloride (Sodium Chloride 0.9%) 1,000 mls @ 100 mls/hr IV .Q10H [facility] Last Admin: 02/14/18 09:19 Dose: 100 mls/hr Aztreonam (Azactam 1 Gm) 100 mls @ 100 mls/hr IVPB Q8 [facility]; Protocol Stop: 02/19/18 14:01 Last Admin: 02/14/18 13:25 Dose: 100 mls/hr Ketorolac Tromethamine (Toradol) 15 mg IVP Q4 PRN PRN Reason: Pain, severe (8-10) Last Admin: 02/13/18 22:10 Dose: 15 mg Ondansetron HCl (Zofran Inj) 4 mg IVP Q4H PRN PRN Reason: Nausea/Vomiting - Labs Labs: 02/14/18 07:42 02/14/18 07:42 PT 18.4 SECONDS (9.4-12.5) H 02/12/18 11:40 INR 1.59 02/12/18 11:40 APTT 30.6 Seconds (25.1-36.5) 02/12/18 11:40 - Constitutional Appears: Well, Non-toxic, No Acute Distress - Head Exam Head Exam: ATRAUMATIC, NORMAL INSPECTION, NORMOCEPHALIC - Eye Exam Eye Exam: EOMI, PERRL - Respiratory Exam Respiratory Exam: Clear to Ausculation Bilateral, NORMAL BREATHING PATTERN - Cardiovascular Exam Cardiovascular Exam: REGULAR RHYTHM - GI/Abdominal Exam GI & Abdominal Exam: Soft, Tenderness (RLQ), Normal Bowel Sounds - Extremities Exam Extremities Exam: Full ROM - Back Exam Back Exam: CVA tenderness (R) - Neurological Exam Neurological Exam: Alert, Awake, CN II-XII Intact, Oriented x3 Neuro motor strength exam: Left Upper Extremity: 5, Right Upper Extremity: 5, Left Lower Extremity: 5, Right Lower Extremity: 5 - Skin Skin Exam: Dry, Intact Assessment and Plan - Assessment and Plan (Free Text) Assessment: 58 year old female with no significant past medical history presents with abdominal pain and flank pain. Ct abdomen and pelvis showed mutliple stones in right kidney including large stone that is [id number]. Stone is in right pelvis. Perinephris stranding to lower pole of right kidney was appreciated. Findings are suspicious for pyelonephritis. Plan: Sepsis 2/2 to pyelonephritis -Patient had fever of 102.5 yesterday morning, but is afebrile today. HR of 92, RR of 20, and WBC of 11.5 with suspected source of infection of pyelonephritis. -BP stable at 115/69 -Patient has multiple renal stones and CT and clinical findings support pyelonephritis and nephrolithiasis diagnosis with largest stone 12x22 mm. Urine culture positive for E. Coli and blood culture positive for E. Coli. -E. Coli from blood culture is only resistant to ampicillin. -Procalcitonin: 2.86. Continue to trend. -Continue with aztreonam day 2 of 14 due to penicillin allergy so rocephin is not recommended, as per ID, Dr. Ferreira. -Continue with toradol for pain -Continue with zofran PRN for nausea -Continue with acetaminophen PRN for fever. -Dr. Wolf, ID, consulted for recommendations. -Dr. Baxter, Urology, consulted for recommendations. Dr. Baxter recommends outpatient follow up and antibiotics Normocytic anemia -Hgb: 10.7 -Continue to monitor Hypokalemia -K: 3.5 -Replete as necessary Abnormal LFTs -Improved bilirubin at 1.3 today and improved ALP at 143 from 207. DVT prophylaxis: lovenox 40 mg daily GI prophylaxis: pepcid 20 mg daily Patient plan discussed with Dr. Mercer. <Parminder Mercer - Last Filed: 02/14/18 15:01> Objective - Vital Signs/Intake and Output Vital Signs (last 24 hours): Temp Pulse Resp BP Pulse Ox 98.9 F 74 20 115/69 95 02/14/18 06:00 02/14/18 06:00 02/14/18 06:00 02/14/18 06:00 02/14/18 06:00 Intake and Output: 02/14/18 02/14/18 06:59 18:59 Intake Total 1620 Balance 1620 - Medications Medications: Current Medications Acetaminophen (Tylenol 325mg Tab) 650 mg PO Q6H PRN PRN Reason: Fever >100.4 F Last Admin: 02/13/18 18:08 Dose: 650 mg Enoxaparin Sodium (Lovenox) 40 mg SC DAILY [facility]; Protocol Last Admin: 02/14/18 09:17 Dose: 40 mg Famotidine (Pepcid) 20 mg IVP DAILY [facility] Last Admin: 02/14/18 09:17 Dose: 20 mg Sodium Chloride (Sodium Chloride 0.9%) 1,000 mls @ 100 mls/hr IV .Q10H [facility] Last Admin: 02/14/18 09:19 Dose: 100 mls/hr Aztreonam (Azactam 1 Gm) 100 mls @ 100 mls/hr IVPB Q8 [facility]; Protocol Stop: 02/19/18 14:01 Last Admin: 02/14/18 13:25 Dose: 100 mls/hr Ketorolac Tromethamine (Toradol) 15 mg IVP Q4 PRN PRN Reason: Pain, severe (8-10) Last Admin: 02/13/18 22:10 Dose: 15 mg Ondansetron HCl (Zofran Inj) 4 mg IVP Q4H PRN PRN Reason: Nausea/Vomiting - Labs Labs: 02/14/18 07:42 02/14/18 07:42 PT 18.4 SECONDS (9.4-12.5) H 02/12/18 11:40 INR 1.59 02/12/18 11:40 APTT 30.6 Seconds (25.1-36.5) 02/12/18 11:40 Attending/Attestation - Attestation I have personally seen and examined this patient.: Yes I have fully participated in the care of the patient.: Yes I have reviewed all pertinent clinical information, including history, physical exam and plan: Yes Notes (Text): 02/14/18 14:58 58 year old female with no significant past medical history who presented with flank pain and fevers. She was found to have multiple stones in the right kidney with pyelonephritis on CT scan and E Coli UTI / bacteremia. Continue with iv antibiotics as per ID. May need up to 2 weeks of antibiotics. Leukocytosis continues to improve and fever trend have down. Urology evaluation was appreciated as well. May need urological intervention, inpatient or outpati ent, depending on clinical course. Will replete and repeat potassium. Bilirubin was initially slightly elevated however CT not suggestive of gallbladder/liver pathology. Will continue to monitor for now. Parminder Mercer MD Hospitalist.
[2018-02-15] MEDS: Sodium Chloride 0.9% 1,000 ML IV SCH (01:38)
[2018-02-15] MEDS: Aztreonam 1 Gm in NS 100mL 100 ML IVPB SCH ×2 (06:08→13:02)
[2018-02-15 06:50] LABS: BASO # 0.03 K/mm3 (0.0-2.0); BASO % 0.3 % (0.0-3.0); EOS # 0.1 (0.0-0.7); GRAN # 6.97 (1.4-6.5); GRAN % 70.3 % (50.0-68.0); HEMOGLOBIN 10.9 g/dL (12.0-16.0); LYMPH % 19.9 % (22.0-35.0); MEAN CELL VOLUME 86.6 fl (80.0-105.0); MEAN CORPUSCULAR HEMOGLOBIN 28.6 pg (25.0-35.0); MEAN PLATELET VOLUME 9.6 fl (7.0-11.0); MONO # 0.8 (0.1-0.6); MONO % 8.5 % (1.0-6.0); RBC 3.81 10^6/uL (3.5-6.1); RED CELL DISTRIBUTION WIDTH 14.4 % (11.5-14.5); WHITE BLOOD COUNT 9.9 10^3/uL (4.5-11.0)
[2018-02-15 07:00] LABS: ALB/GLOB RATIO 0.8 (1.1-1.8); ALBUMIN 3.4 g/dL (3.0-4.8); ALT/SGPT 54 U/L (7-56); AST/SGOT 48 U/L (14-36); BLOOD UREA NITROGEN 10 mg/dL (7-21); CALCIUM 8.4 mg/dL (8.4-10.5); GFR NON-AFRICAN AMERICAN > 60
[2018-02-15 08:11] VITALS: BP 126/82; PULSE 76; RESP 19; TEMP 99.8; O2SAT 97
--- NOTE | 2018-02-15 09:23 | CP.PCM.PN ---
<Aly Trent - Last Filed: 02/15/18 11:57> Subjective - Date & Time of Evaluation Date of Evaluation: 02/15/18 Time of Evaluation: 09:20 - Subjective Subjective: ID progress note for Dr. Ferreira/Dr. Wolf service - Raffaele Trent PGY3 Patient seen and examined at bedside this morning. No acute overnight events or new complaints reported. Flank pain improving. Denies cp, palpitations, SOB. Objective - Vital Signs/Intake and Output Vital Signs (last 24 hours): Temp Pulse Resp BP Pulse Ox 99.8 F H 76 19 126/82 97 02/15/18 08:11 02/15/18 08:11 02/15/18 08:11 02/15/18 08:11 02/15/18 08:11 Intake and Output: 02/15/18 02/15/18 06:59 18:59 Intake Total 1845 Balance 1845 - Medications Medications: Current Medications Acetaminophen (Tylenol 325mg Tab) 650 mg PO Q6H PRN PRN Reason: Fever >100.4 F Last Admin: 02/13/18 18:08 Dose: 650 mg Enoxaparin Sodium (Lovenox) 40 mg SC DAILY [facility]; Protocol Last Admin: 02/14/18 09:17 Dose: 40 mg Famotidine (Pepcid) 20 mg PO HS [facility] Sodium Chloride (Sodium Chloride 0.9%) 1,000 mls @ 100 mls/hr IV .Q10H [facility] Last Admin: 02/15/18 01:38 Dose: 100 mls/hr Aztreonam (Azactam 1 Gm) 100 mls @ 100 mls/hr IVPB Q8 [facility]; Protocol Stop: 02/19/18 14:01 Last Admin: 02/15/18 06:08 Dose: 100 mls/hr Ketorolac Tromethamine (Toradol) 15 mg IVP Q4 PRN PRN Reason: Pain, severe (8-10) Last Admin: 02/13/18 22:10 Dose: 15 mg Ondansetron HCl (Zofran Inj) 4 mg IVP Q4H PRN PRN Reason: Nausea/Vomiting Last Admin: 02/15/18 06:15 Dose: 4 mg - Labs Labs: 02/15/18 06:00 02/15/18 06:00 PT 18.4 SECONDS (9.4-12.5) H 02/12/18 11:40 INR 1.59 02/12/18 11:40 APTT 30.6 Seconds (25.1-36.5) 02/12/18 11:40 - Constitutional Appears: No Acute Distress - Head Exam Head Exam: ATRAUMATIC, NORMAL INSPECTION, NORMOCEPHALIC - Eye Exam Eye Exam: EOMI, PERRL - ENT Exam ENT Exam: Mucous Membranes Moist - Respiratory Exam Respiratory Exam: absent: Rales, Rhonchi, Wheezes - Cardiovascular Exam Cardiovascular Exam: RRR, +S1, +S2. absent: Gallop, Rubs - GI/Abdominal Exam GI & Abdominal Exam: Soft. absent: Distended, Firm, Guarding, Rigid, Tenderness, Rebound - Neurological Exam Neurological Exam: Alert, Awake, CN II-XII Intact, Oriented x3 - Psychiatric Exam Psychiatric exam: Normal Affect, Normal Mood - Skin Skin Exam: Dry, Intact, Normal Color, Warm Assessment and Plan - Assessment and Plan (Free Text) Plan: 58yo female with no significant history presents with sudden onset abdominal pain secondary to right-sided pyelonephritis right-sided pyelonephritis obstructive uropathy nephrolithiasis hypomagnesemia abdominal pain/nausea/vomiting -urinalysis culture notable for ecoli -blood culture notable for ecoli as well; pending identification/sensitivity of 2nd bottle -patient started on azactam which will be deescalated based on the sensitivity -Patient may be able to be discharged on ciprofloxacin however 2nd blood culture bottle pending identification/sensitivity -procalcitonin elevated at 2.86 -f/u urology recommendations -CT abd/pelvis was reviewed; revealed multiple stones in the r. kidney, perinephritic stranding; findings suspicious for pyelonephritis Patient seen and case discussed/reviewed with attending, Dr. Ferreira <Tulio Ferreira - Last Filed: 02/15/18 19:24> Objective - Vital Signs/Intake and Output Vital Signs (last 24 hours): Temp Pulse Resp BP Pulse Ox 99.8 F H 76 19 126/82 97 02/15/18 08:11 02/15/18 08:11 02/15/18 08:11 02/15/18 08:11 02/15/18 08:11 - Labs Labs: 02/15/18 06:00 02/15/18 06:00 PT 18.4 SECONDS (9.4-12.5) H 02/12/18 11:40 INR 1.59 02/12/18 11:40 APTT 30.6 Seconds (25.1-36.5) 02/12/18 11:40 Assessment and Plan - Assessment and Plan (Free Text) Plan: Infectious diseases Attending Physician Attestation Patient seen and examined, discussed with director medical. I have reviewed the patient's history of present illness, past medical, social, personal and family histories, pertinent physical exam findings, course so far in this hospital admission, pertinent laboratory and imaging results. I agree with the above findings, assessment and plan. In addition, continue Aztreonam for this patient with sepsis from complicated right sided pyelonpehritis with nephrolithiasis, with E. coli. May be able to switch to Cipro to complete course of therapy (10- 14 days). Follow up further plans of Urology.
--- NOTE | 2018-02-15 10:25 | PCM.URO ---
Urology Progress Note - Subjective Nausea: Yes (from gu standpoint pt clear for discharge home ) - Objective Lab Results Last 24 Hours: Laboratory Results - last 24 hr 02/15/18 02/15/18 02/15/18 06:00 06:00 07:27 WBC 9.9 RBC 3.81 Hgb 10.9 L Hct 33.0 L MCV 86.6 MCH 28.6 MCHC 33.0 RDW 14.4 Plt Count 227 MPV 9.6 Gran % 70.3 H Lymph % (Auto) 19.9 L [place] % (Auto) 8.5 H Eos % (Auto) 1.0 L Baso % (Auto) 0.3 Gran # 6.97 H Lymph # (Auto) 2.0 [place] # (Auto) 0.8 H Eos # (Auto) 0.1 Baso # (Auto) 0.03 Sodium 139 Potassium 3.4 L Chloride 109 H Carbon Dioxide 25 Anion Gap 8 L BUN 10 Creatinine 0.9 Est GFR ( Amer) > 60 Est GFR (Non-Af Amer) > 60 POC Glucose (mg/dL) 117 H Random Glucose 105 Calcium 8.4 Total Bilirubin 1.1 AST 48 H D ALT 54 Alkaline Phosphatase 185 H D Total Protein 7.4 Albumin 3.4 Globulin 4.0 Albumin/Globulin Ratio 0.8 L Intake & Output: Intake & Output 02/14/18 02/15/18 02/15/18 18:59 06:59 18:59 Intake Total 1845 Balance 1845 Intake: IV 1125 Left Forearm 1125 Oral 720 Other: # Voids Urine, Voided 4 Vital Signs: Vital Signs - 24 hr 02/14/18 02/14/18 02/14/18 17:03 18:00 23:38 Temperature 99.3 F 97.9 F 99.6 F Pulse Rate 72 54 L Respiratory 18 20 Rate Blood Pressure 127/82 130/69 O2 Sat by Pulse 99 95 Oximetry 02/15/18 08:11 Temperature 99.8 F H Pulse Rate 76 Respiratory 19 Rate Blood Pressure 126/82 O2 Sat by Pulse 97 Oximetry
[2018-02-15] MEDS: Enoxaparin 40 mg Syringe SC SCH (11:15)
--- NOTE | 2018-02-15 16:10 | CP.PCM.DIS ---
Provider - Provider Date of Admission: 02/11/18 19:29 Attending physician: Koko Justin MD Primary care physician: None Consults: 02/11/18 22:12 Physician Consult Routine Comment: Consulting Provider: Waqas Baxter Consulting Physician: Waqas Baxter Reason for Consult: pyelonephritis 02/12/18 07:28 Physician Consult Routine Comment: Consulting Provider: Jason Wolf Consulting Physician: Jason Wolf Reason for Consult: pyelonephritis Time Spent in preparation of Discharge (in minutes): 60 Diagnosis - Discharge Diagnosis (1) Pyelonephritis Status: Acute Hospital Course - Lab Results Lab Results: Micro Results 02/11/18 17:30 Blood Blood Culture - Final Escherichia Coli 02/11/18 17:30 Blood Gram Stain - Final 02/11/18 17:30 Urine,Clean Catch Urine Culture - Final Escherichia Coli 02/11/18 17:52 Blood Blood Culture - Preliminary Gram Negative [place] 02/11/18 17:52 Blood Gram Stain - Final Most Recent Lab Values WBC 9.9 10^3/uL (4.5-11.0) 02/15/18 06:00 RBC 3.81 10^6/uL (3.5-6.1) 02/15/18 06:00 Hgb 10.9 g/dL (12.0-16.0) L 02/15/18 06:00 Hct 33.0 % (36.0-48.0) L 02/15/18 06:00 MCV 86.6 fl (80.0-105.0) 02/15/18 06:00 MCH 28.6 pg (25.0-35.0) 02/15/18 06:00 MCHC 33.0 g/dl (31.0-37.0) 02/15/18 06:00 RDW 14.4 % (11.5-14.5) 02/15/18 06:00 Plt Count 227 10^3/uL (120.0-450.0) 02/15/18 06:00 MPV 9.6 fl (7.0-11.0) 02/15/18 06:00 Gran % 70.3 % (50.0-68.0) H 02/15/18 06:00 Lymph % (Auto) 19.9 % (22.0-35.0) L 02/15/18 06:00 [place] % (Auto) 8.5 % (1.0-6.0) H 02/15/18 06:00 Eos % (Auto) 1.0 % (1.5-5.0) L 02/15/18 06:00 Baso % (Auto) 0.3 % (0.0-3.0) 02/15/18 06:00 Gran # 6.97 (1.4-6.5) H 02/15/18 06:00 Lymph # (Auto) 2.0 (1.2-3.4) 02/15/18 06:00 [place] # (Auto) 0.8 (0.1-0.6) H 02/15/18 06:00 Eos # (Auto) 0.1 (0.0-0.7) 02/15/18 06:00 Baso # (Auto) 0.03 K/mm3 (0.0-2.0) 02/15/18 06:00 Neutrophils % (Manual) 85 % (50.0-70.0) H 02/11/18 16:30 Band Neutrophils % 3 % (0-2) H 02/11/18 16:30 Lymphocytes % (Manual) 8 % (22.0-35.0) L 02/11/18 16:30 Monocytes % (Manual) 3 % (1.0-6.0) 02/11/18 16:30 Metamyelocytes % 1 % 02/11/18 16:30 Platelet Evaluation Normal (NORMAL) 02/11/18 16:30 PT 18.4 SECONDS (9.4-12.5) H 02/12/18 11:40 INR 1.59 02/12/18 11:40 APTT 30.6 Seconds (25.1-36.5) 02/12/18 11:40 Sodium 139 mmol/L (132-148) 02/15/18 06:00 Potassium 3.4 mmol/L (3.6-5.0) L 02/15/18 06:00 Chloride 109 mmol/L (98-107) H 02/15/18 06:00 Carbon Dioxide 25 mmol/L (21-33) 02/15/18 06:00 Anion Gap 8 (10-20) L 02/15/18 06:00 BUN 10 mg/dL (7-21) 02/15/18 06:00 Creatinine 0.9 mg/dl (0.7-1.2) 02/15/18 06:00 Est GFR ( Amer) > 60 02/15/18 06:00 Est GFR (Non-Af Amer) > 60 02/15/18 06:00 POC Glucose (mg/dL) 117 mg/dL (65-110) H 02/15/18 07:27 Random Glucose 105 mg/dL (70-110) 02/15/18 06:00 Calcium 8.4 mg/dL (8.4-10.5) 02/15/18 06:00 Phosphorus 3.3 mg/dL (2.5-4.5) 02/11/18 16:30 Magnesium 1.5 mg/dL (1.7-2.2) L 02/11/18 16:30 Total Bilirubin 1.1 mg/dL (0.2-1.3) 02/15/18 06:00 AST 48 U/L (14-36) H D 02/15/18 06:00 ALT 54 U/L (7-56) 02/15/18 06:00 Alkaline Phosphatase 185 U/L (38-126) H D 02/15/18 06:00 Total Protein 7.4 g/dL (5.8-8.3) 02/15/18 06:00 Albumin 3.4 g/dL (3.0-4.8) 02/15/18 06:00 Globulin 4.0 gm/dL 02/15/18 06:00 Albumin/Globulin Ratio 0.8 (1.1-1.8) L 02/15/18 06:00 Lipase 41 U/L (23-300) 02/11/18 16:30 Procalcitonin 2.86 NG/ML (0.19-0.49) H 02/12/18 08:48 Urine Color Yellow (YELLOW) 02/11/18 17:30 Urine Appearance Slight-cloudy (CLEAR) 02/11/18 17:30 Urine pH 7.0 (4.7-8.0) 02/11/18 17:30 Ur Specific [place] 1.020 (1.005-1.035) 02/11/18 17:30 Urine Protein Trace mg/dL (<30 mg/dL) H 02/11/18 17:30 Urine Glucose (UA) Negative mg/dL (NEGATIVE) 02/11/18 17:30 Urine Ketones Negative mg/dL (NEGATIVE) 02/11/18 17:30 Urine Blood Trace-lysed (NEGATIVE) H 02/11/18 17:30 Urine Nitrate Positive (NEGATIVE) H 02/11/18 17:30 Urine Bilirubin Negative (NEGATIVE) 02/11/18 17:30 Urine Urobilinogen 0.2 E.U./dL (<1 E.U./dL) 02/11/18 17:30 Ur Leukocyte Esterase Trace [place]/uL (NEGATIVE) H 02/11/18 17:30 Urine RBC Negative /hpf (0-2) 02/11/18 17:30 Urine WBC 5 - 10 /hpf (0-6) 02/11/18 17:30 Ur Epithelial Cells 1 - 3 /hpf (0-5) 02/11/18 17:30 Urine Bacteria Large (NEG) 02/11/18 17:30 - Hospital Course Hospital Course: Wilfred Holloway, PGY-1, Internal Medicine Discharge Summary for Dr. Streeter 58 year old female with no significant past medical history presented with abdominal pain and flank pain. CT abdomen and pelvis showed multiple stones in right kidney including large stone that is [id number]. Stone is in right pelvis. Perinephric stranding to lower pole of right kidney was appreciated. Patient was febrile and fulfilled sepsis criteria on admission. Blood cultures and urine cultures were ordered on admission, which both came back positive for E. Coli. E. Coli was sensitive to ampicillin. Patient was started on ciprofloaxicin on admission and toradol for pain. Zofran was given for nausea as needed. Patient was switched to aztreonam as per ID, Dr. Ferreira on 02/12. Patient was found to be afebrile on 02/13. at 4:57. Patient has not been febrile since that time. Leukocytosis resolved today. As per urology, patient was told to follow up outpatient for removal of renal stone and to continue with antibiotic regimen. Patient was deemed stable today and discharged for close follow up with Dr. Baxter, Urology. Patient was told to follow up with PCP in one week and Dr. Baxter on 03/10/2018. Patient was discharged with 14 day regimen of ciprofloaxicin 500 mg BID. Patient was told to return to the emergency department if she had any recurring symptoms or worsening symptoms. This is a brief summary of the events that occurred during this hospital visit. For further details, please refer to hospital documentation. - Date & Time of H&P Date of H&P: 02/15/18 Time of H&P: 16:08 Discharge Exam - Head Exam Head Exam: ATRAUMATIC, NORMAL INSPECTION, NORMOCEPHALIC - Eye Exam Eye Exam: EOMI, PERRL - Respiratory Exam Respiratory Exam: Clear to PA & Lateral, NORMAL BREATHING PATTERN - Cardiovascular Exam Cardiovascular Exam: REGULAR RHYTHM - GI/Abdominal Exam GI & Abdominal Exam: Normal Bowel Sounds. absent: Distended, Tenderness - Extremities Exam Extremities exam: full ROM - Back Exam Back exam: CVA tenderness (R) (improved) - Neurological Exam Neurological exam: Alert, CN II-XII Intact, Oriented x3 - Skin Skin Exam: Dry, Intact Discharge Plan - Discharge Medications Prescriptions: Ciprofloxacin [Cipro] 500 mg PO BID 14 Days #28 tab - Follow Up Plan Condition: GUARDED Disposition: HOME/ ROUTINE Instructions: Kidney Infection, Urinary Tract Infection, Adult (DC), Urinary Tract Infection in Women (DC), Urinary Tract Infection in Men (DC), Dysuria (GEN) Additional Instructions: Please follow up with PCP in 1 week. Please follow up with Urology, Dr. Baxter, on March 10, 2018. Please take prescribed ciprofloaxicin 500 mg BID for 14 days. Please return to the emergency department if you have worsening symptoms or new concerning symptoms. Referrals: [facility] [Outside] Waqas Baxter MD [Staff Provider] -
--- NOTE | 2018-02-15 17:17 | RAD ---
Date of service: 02/15/2018 HISTORY: urolithiasis COMPARISON: 02/11/2018 CT abdomen and pelvis FINDINGS: BOWEL: Normal. No obstruction. No free air. BONES: Normal. OTHER FINDINGS: Multiple right renal calculi similar to that seen on recent CT scan. Largest calculus measures 12 x 23 mm. IMPRESSION: Stable appearance of multiple right renal calculi.
== END 2018-02-15 15:57 | disposition home or self-care (01) | DRG 872 ==
LOC: ED 14:54 → ERH 19:29 → 3RSO 22:39
PROVIDERS: ADMIT Hospitalist; ATTEND Hospitalist
DX: A41.51 Sepsis due to Escherichia coli [E. coli] (principal); N12 Tubulo-interstitial nephritis, not specified as acute or chronic; E83.42 Hypomagnesemia; N20.0 Calculus of kidney; E87.6 Hypokalemia; R79.89 Other specified abnormal findings of blood chemistry; Z88.0 Allergy status to penicillin